=== PATIENT | female | born 1990 | race Caucasian/White ===

== ENCOUNTER 2018-08-10 05:44 | Emergency (ER) | payer OTHER ==
[2018-08-10 06:18] VITALS: BP 129/79
[2018-08-10 06:46] LABS: Bilirubin,Urine NEG (Negative); Blood,Urine NEG (Negative); Color,Urine Yellow (Yellow); Mucus,Urine FEW /HPF; Protein,Urine <15 mg/dL mg/dL (Negative); Urobilinogen,Urine < 2.0 mg/dL (<2.0)
[2018-08-10 06:49] LABS: Basophils % (Auto) 0.3 % (0.0-1.8); Eosinophils # (Auto) 0.6 K/mm3 (0.0-0.4); Eosinophils % (Auto) 5.4 % (0.0-4.3); Hematocrit 39.9 % (30.3-42.9); Hemoglobin 13.3 gm/dl (10.1-14.3); Lymphocytes # (Auto) 2.1 K/mm3 (1.2-5.4); Lymphocytes % (Auto) 19.6 % (13.4-35.0); Mean Corpuscular HGB Conc 33 % (30-34); Mean Corpuscular Volume 91 fl (79-97); Monocytes # (Auto) 0.7 K/mm3 (0.0-0.8); Monocytes % (Auto) 6.9 % (0.0-7.3); Platelet Count 239 K/mm3 (140-440); Red Blood Count 4.39 M/mm3 (3.65-5.03); Red Cell Distribution Width 13.5 % (13.2-15.2)
[2018-08-10] MEDS ORDERED: TYLENOL PO ONE (07:31)
--- NOTE | 2018-08-10 07:49 | Emergency Department Report ---
ED Fall HPI - General Chief Complaint: Abdominal Pain Stated Complaint: 3MOS /FELL/STOMACH PAIN Time Seen by Provider: 08/10/18 07:09 Source: patient Mode of arrival: Ambulatory - History of Present Illness Initial Comments: This is a 28-year-old female nontoxic, well nourished in appearance, no acute signs of distress presents to the ED with c/o of pelvic pain. Patient stated that she she had a fall this morning and landed on her right side back area. Patient denies any neck or back pain. Patient denies any head trauma or headache. Patient denies any upper abdominal pain. Patient denies any vagianl bleeding. Patient denies any vaginal discharge or foul odor. Patient denies any nausea, vomiting, chest pain, shortness of breathe, fever, chills, headache, stiff neck, numbness, tingling. Patient denies any urinary symptoms. Patient denies any allergies or PMH. MD Complaint: fall -: This morning Fall From: down stairs (#) (5) Fall Witnessed: no Place Fall Occurred: home Loss of Consciousness: none Prolonged Down Time?: no Symptoms Prior to Fall: none Severity: mild Severity scale (0 -10): 3 Quality: other (cramping) Context: tripped/slipped Associated Symptoms: denies, other (pelvic pain). denies: headache, neck pain, numbness, weakness, chest paint, shortness of breath, abdominal pain, hematuria, unable to walk, lightheaded, vertigo, confusion - Related Data Previous Rx's Medication Instructions Recorded Last Taken Type Acetaminophen 500 mg PO Q8H PRN #20 tablet 08/10/18 Unknown Rx Allergies Allergy/AdvReac Type Severity Reaction Status Date / Time No Known Allergies Allergy Unverified 08/10/18 06:19 ED Review of Systems ROS: Stated complaint: 3MOS /FELL/STOMACH PAIN Other details as noted in HPI Constitutional: denies: chills, fever Eyes: denies: eye pain, eye discharge, vision change ENT: denies: ear pain, throat pain Respiratory: denies: cough, shortness of breath, wheezing Cardiovascular: denies: chest pain, palpitations Endocrine: no symptoms reported Gastrointestinal: denies: abdominal pain, nausea, diarrhea Genitourinary: denies: urgency, dysuria, discharge Musculoskeletal: denies: back pain, joint swelling, arthralgia Skin: denies: rash, lesions Neurological: denies: headache, weakness, paresthesias Psychiatric: denies: anxiety, depression Hematological/Lymphatic: denies: easy bleeding, easy bruising ED Past Medical Hx - Past Medical History Previous Medical History?: No - Surgical History Past Surgical History?: No - Social History Smoking Status: Never Smoker Substance Use Type: None - Medications Home Medications: Home Medications Medication Instructions Recorded Confirmed Last Taken Type Acetaminophen 500 mg PO Q8H PRN #20 tablet 08/10/18 Unknown Rx ED Physical Exam - General Limitations: No Limitations General appearance: alert, in no apparent distress - Head Head exam: Present: atraumatic, normocephalic - Eye Eye exam: Present: normal appearance - Neck Neck exam: Present: normal inspection, full ROM - Respiratory Respiratory exam: Present: normal lung sounds bilaterally. Absent: respiratory distress, wheezes, rales, rhonchi, stridor, chest wall tenderness, accessory muscle use, decreased breath sounds, prolonged expiratory - Cardiovascular Cardiovascular Exam: Present: regular rate, normal rhythm - GI/Abdominal GI/Abdominal exam: Present: soft, normal bowel sounds. Absent: distended, tenderness, guarding, rebound, rigid, diminished bowel sounds - Extremities Exam Extremities exam: Present: normal inspection, full ROM - Back Exam Back exam: Present: normal inspection, full ROM. Absent: tenderness, CVA tenderness (R), CVA tenderness (L), muscle spasm, paraspinal tenderness, vertebral tenderness, rash noted - Neurological Exam Neurological exam: Present: alert, oriented X3 - Psychiatric Psychiatric exam: Present: normal affect, normal mood - Skin Skin exam: Present: warm, dry, intact, normal color. Absent: rash ED Course Vital Signs 08/10/18 06:13 Temperature 98.6 F Pulse Rate 104 H Respiratory 16 Rate Blood Pressure 129/79 O2 Sat by Pulse 100 Oximetry - Reevaluation(s) Reevaluation #1: 08/10/18 08:08 Patient is speaking in full sentences with no signs of distress noted. ED Medical Decision Making - Lab Data Result diagrams: 08/10/18 06:33 - Medical Decision Making This is a 28-year-old female presents with fall. Patient is stable and was examined by me. Normal abdominal exam. US OB obtained and dictated by the radiologist. Quantative serum test obtained. Patient notified of the US report with no questions noted by the patient. Patient was instructed f/u with [facility] in 3-5 days. Labs within normal limits. At time of discharge, the patient does not seem toxic or ill in appearance. No acute signs of distress noted. Patient agrees to discharge treatment plan of care. No further questions noted by the patient. Critical care attestation.: If time is entered above; I have spent that time in minutes in the direct care of this critically ill patient, excluding procedure time. ED Disposition Clinical Impression: Pelvic pain during Fall Qualifiers: Encounter type: initial encounter Qualified Code(s): W19.XXXA - Unspecified fall, initial encounter Disposition: TO HOME OR SELFCARE Is pt being admited?: No Does the pt Need Aspirin: No Condition: Stable Instructions: Fall Prevention (ED), (ED) Additional Instructions: Follow-up with a OBGYN doctor in 3-5 days or if symptoms worsen and continue return to emergency room as soon as possible. Prescriptions: Acetaminophen 500 mg PO Q8H PRN #20 tablet PRN Reason: Pain, Moderate (4-6) Referrals: PRIMARY CAREMD [Primary Care Provider] - 3-5 Days LUKASZ MEJIA MD [Staff Physician] - 3-[address] [facility] [place] [Outside] - 3-5 Days [facility] [Outside] - 3-5 Days Forms: Work/School Release Form(ED)
--- NOTE | 2018-08-10 10:27 | Ultrasound Report ---
FINAL REPORT EXAM: US OB <= 14 WEEKS FETUS HISTORY: pelvic pain TECHNIQUE: Early obstetrical ultrasound was performed. Transabdominal and transvaginal imaging PRIORS: None. FINDINGS: There is a gestational sac in the uterus. This contains a small fetus. The crown rump length measurement corresponds to a gestational age of 12 weeks 2 days. This correspon ds to an FITO of 02/20/2019.. Cardiac activity is identified, measured at 162 beats per minute. There is no subchorionic hemorrhage seen. Ovaries are unremarkable. There is no abnormal free fluid. IMPRESSION: There is a single live intrauterine gestation of approximately 12 weeks 2 days. This corresponds to E DD of 02/20/2019. No significant abnormality seen.
--- NOTE | 2018-08-10 10:27 | Ultrasound Report ---
FINAL REPORT EXAM: US OB TRANSVAGINAL HISTORY: pelvic pain TECHNIQUE: Early obstetrical ultrasound was performed. Transabdominal and transvaginal imaging PRIORS: None. FINDINGS: There is a gestational sac in the uterus. This contains a small fetus. The crown rump length measurement corresponds to a gestational age of 12 weeks 2 days. This correspon ds to an FITO of 02/20/2019.. Cardiac activity is identified, measured at 162 beats per minute. There is no subchorionic hemorrhage seen. Ovaries are unremarkable. There is no abnormal free fluid. IMPRESSION: There is a single live intrauterine gestation of approximately 12 weeks 2 days. This cor responds to FITO of 02/20/2019. No significant abnormality seen.
== END 2018-08-10 10:36 | disposition home or self-care (01) ==
LOC: ED 05:44
DX: O26.891 Other specified pregnancy related conditions, first trimester (principal); R10.2 Pelvic and perineal pain; Z3A.12 12 weeks gestation of pregnancy; W01.0XXA Fall on same level from slipping, tripping and stumbling without subsequent striking against object, initial encounter; Y93.89 Activity, other specified; Y99.8 Other external cause status; Y92.019 Unspecified place in single-family (private) house as the place of occurrence of the external cause
CPT/HCPCS: 36415; 76801; 76817; 81001; 84702; 85025